=== PATIENT | female | born 1975 | race Caucasian/White ===

== ENCOUNTER → 2020-09-01 | Outpatient (CLI) | payer OTHER ==
[~2020-09-01] MED LIST: CELEXA20 MG PO; COLESTIPOL HCL1 GM PO; COREG25 MG PO; DIATRIZOATE MEGL/DIATRIZOA SOD 30 ML BTL PO ONE; GAMMAGARD S-D10 GM SQ; IOPAMIDOL 370 MG/ML 200 ML INFUS..BTL INJ ONE; KLONOPIN1 MG PO; LIBRAX CAPSULE1 EACH PO; PANTOPRAZOLE SO40 MG PO; PENTASA500 MG PO; REGLAN10 MG PO; SEASONALE1 EACH PO; SODIUM CHLORIDE 0.9% 50ML 50 ML ONE; SYMBICORT 16010.2 GM INH; TYLENOL WITH C1 EACH PO; WELLBUTRIN SR150 MG PO; Z IRON PO; Z.0.ATIVAN1 MG PO; Z.0.CELEXA10 MG PO; Z.0.CELEXA20 MG PO; Z.0.COREG25 MG PO; Z.0.COZAAR50 MG PO; Z.0.KLONOPIN1 MG PO; Z.0.ORACEA40 MG PO; Z.0.PRILOSEC40 MG PO; Z.0.WELLBUTRIN SR150 PO; Z.0.ZYRTEC10 M3 PO; ZOFRAN8 MG PO; [UNRECOGNIZED DRUG - OTHER]
[2020-09-01 18:13] LABS: BLOOD UREA NITROGEN 10 mg/dL (7-26); BUN/CREATININE RATIO 14 (6-25); CREATININE, SERUM 0.72 mg/dL (0.57-1.11); EST GLOMERULAR FILTRATION RATE > 60 ML/MIN (60-)
== END ==
LOC: CT 17:27
PROVIDERS: ATTEND Surgery
DX: K43.2 Incisional hernia without obstruction or gangrene (principal)
CPT/HCPCS: 36415; 74177; 82565; 84520; Q9967

== ENCOUNTER 2022-02-20 09:21 | Emergency (ER) | payer BC, OTHER ==
[~2022-02-20] VITALS: Ht 307.3 cm; Wt 90.7 kg
[~2022-02-20 09:21] MED LIST changes: -DIATRIZOATE MEGL/DIATRIZOA SOD 30 ML BTL PO ONE; -IOPAMIDOL 370 MG/ML 200 ML INFUS..BTL INJ ONE; -SODIUM CHLORIDE 0.9% 50ML 50 ML ONE
[2022-02-20 10:00] LABS: BASOPHILS # (AUTO) 0.1 (0.0-0.1); BASOPHILS % 0.6 % (0.0-1.0); EOSINOPHILS # (AUTO) 0.2 (0.0-0.4); EOSINOPHILS % 1.3 % (0.0-6.0); HEMATOCRIT 31.7 % (34.2-44.1); HEMOGLOBIN 9.7 g/dL (12.0-16.0); LYMPHOCYTES # (AUTO) 2.7 (1.0-3.2); LYMPHOCYTES % 21.3 % (18.0-39.1); MEAN CORPUSCULAR HEMOGLOBIN 27.7 pg (28-32); MEAN CORPUSCULAR HGB CONC 30.6 g/dL (31-35); MEAN CORPUSCULAR VOLUME 90.6 fL (81-99); MONOCYTES # (AUTO) 0.9 (0.2-0.8); NEUTROPHILS # (AUTO) 8.8 (2.1-6.9); NEUTROPHILS % 68.7 % (38.7-80.0); PLATELET COUNT 293 x10e3/uL (140-360); RED CELL DISTRIBUTION WIDTH 17.3 % (11.7-14.4)
[2022-02-20] MEDS ORDERED: ALBUTEROL/IPRATROPIUM 3 ML NEB NEB NR (10:00)
[2022-02-20] MEDS ORDERED: MAGNESIUM SULFATE 2GM/50ML 50 ML IV ONE (10:00)
[2022-02-20 10:19] LABS: ANION GAP 14.8 mmol/L (8-16); CALCIUM 8.9 mg/dL (8.4-10.2); CREATININE, SERUM 0.64 mg/dL (0.57-1.11); POTASSIUM 3.8 mmol/L (3.5-5.1)
[2022-02-20] MEDS ORDERED: MUCINEX DM ER1 EACH PO (11:05)
== END 2022-02-20 11:56 | disposition home or self-care (01) ==
LOC: ER 09:27
DX: R06.02 Shortness of breath (principal); J45.901 Unspecified asthma with (acute) exacerbation; R05.9 Cough, unspecified; Z20.822 Contact with and (suspected) exposure to COVID-19
CPT/HCPCS: 36415; 71046; 80048; 85025; 87400; 94640; 94799; 99284; J3475; U0002

== ENCOUNTER 2023-11-05 12:54 | Emergency (ER) | payer BC ==
[~2023-11-05] VITALS: Ht 160 cm; Wt 81.6 kg
[~2023-11-05 12:54] MED LIST changes: +MUCINEX DM ER1 EACH PO
[2023-11-05 13:04] VITALS: PULSE 75; RESP 16; TEMP 98.2; O2SAT 97
[2023-11-05] MEDS: ACETAMINOPHEN 325 MG TAB PO ONE (13:17)
[2023-11-05] MEDS ORDERED: TYLENOL325 MG PO (13:19)
[2023-11-05] MEDS ORDERED: IBUPROFEN200 MG PO (13:19)
== END 2023-11-05 14:00 | disposition home or self-care (01) ==
LOC: FSED 13:03
DX: S09.90XA Unspecified injury of head, initial encounter (principal); S06.0X0A Concussion without loss of consciousness, initial encounter; S00.03XA Contusion of scalp, initial encounter; W18.09XA Striking against other object with subsequent fall, initial encounter; Y92.013 Bedroom of single-family (private) house as the place of occurrence of the external cause; E11.9 Type 2 diabetes mellitus without complications; J45.909 Unspecified asthma, uncomplicated; F41.8 Other specified anxiety disorders
CPT/HCPCS: 70450; 72125; 99283